=== PATIENT | female | born 1985 | race Caucasian/White ===

== ENCOUNTER 2017-01-31 17:44 | Emergency (ER) | payer MEDICAID ==
[~2017-01-31] VITALS: Ht 162.6 cm; Wt 98.2 kg
[2017-01-31] MEDS ORDERED: SODIUM CHLORIDE FLUSH 10ML SYR IVF ONE (18:30)
[2017-01-31] MEDS ORDERED: SODIUM CHLORIDE 0.9% 1,000ML IVBOLUS ONE (18:30)
[2017-01-31] MEDS ORDERED: ONDANSETRON 2MG/ML, 2ML IVPush ONE (18:30)
[2017-01-31 18:43] LABS: ASPARTATE AMINO TRANSFERASE 26 U/L (15-37); BLOOD UREA NITROGEN 12 mg/dL (7-18)
[2017-01-31] MEDS ORDERED: MAALOX/HYOSCYAMINE/LIDOCAINE 45 ML BOTTLE PO ONE (19:00)
[2017-01-31] MEDS ORDERED: ONDANSETRON 2MG/ML, 2ML ONE (19:01)
[2017-01-31 19:10] LABS: HCG UR OBC PASS
[2017-01-31 19:13] LABS: PATH.CAST-FLAG NOT PRESENT; SPERM-FLAG NOT PRESENT; SRC-FLAG NOT PRESENT; XTAL-FLAG NOT PRESENT; YLC-FLAG NOT PRESENT
[2017-01-31] MEDS ORDERED: MAALOX/HYOSCYAMINE/LIDOCAINE 45 ML BOTTLE ONE (19:27)
[2017-01-31] MEDS ORDERED: MORPHINE SULFATE 4 MG/ML, 1ML ONE (19:41)
[2017-01-31] MEDS ORDERED: METOCLOPRAMIDE 5 MG/ML, 2ML ONE (19:41)
[2017-01-31] MEDS ORDERED: MORPHINE SULFATE 4 MG/ML, 1ML IVPush ONE (20:00)
[2017-01-31] MEDS ORDERED: METOCLOPRAMIDE 5 MG/ML, 2ML IVPush ONE (20:00)
[2017-01-31 20:23] VITALS: BP 103/78
== END 2017-01-31 20:40 | disposition home or self-care (01) ==
LOC: ED 20:34
DX: K25.3 Acute gastric ulcer without hemorrhage or perforation (principal); B96.81 Helicobacter pylori [H. pylori] as the cause of diseases classified elsewhere; N30.00 Acute cystitis without hematuria; R19.7 Diarrhea, unspecified; Z88.0 Allergy status to penicillin; Z90.49 Acquired absence of other specified parts of digestive tract
CPT/HCPCS: 36415; 74020; 80053; 81001; 81025; 83690; 85025; 86677; 87077; 87086; 96361; 96374; 96375; 99285; J2405; J2765; J7030; 87186

== ENCOUNTER 2017-02-03 17:47 | Emergency (ER) | payer MEDICAID ==
[~2017-02-03] VITALS: Ht 152.4 cm; Wt 98.3 kg
[2017-02-03] MEDS ORDERED: FAMOTIDINE 20 MG/2 ML IVP ONE (18:30)
[2017-02-03] MEDS ORDERED: MAALOX/HYOSCYAMINE/LIDOCAINE 45 ML BTL PO ONE (18:30)
[2017-02-03] MEDS ORDERED: SODIUM CHLORIDE 0.9% 1,000ML IVBOLUS ONE (18:30)
[2017-02-03] MEDS ORDERED: ONDANSETRON 2MG/ML, 2ML IVPush ONE (18:30)
[2017-02-03] MEDS ORDERED: SODIUM CHLORIDE FLUSH 10ML SYR IVF ONE (18:30)
[2017-02-03 18:39] LABS: ASPARTATE AMINO TRANSFERASE 17 U/L (15-37); BLOOD UREA NITROGEN 11 mg/dL (7-18)
[2017-02-03] MEDS ORDERED: ONDANSETRON 2MG/ML, 2ML ONE (18:39)
[2017-02-03] MEDS ORDERED: FAMOTIDINE 20 MG/2 ML ONE (18:39)
[2017-02-03] MEDS ORDERED: MAALOX/HYOSCYAMINE/LIDOCAINE 45 ML BTL ONE (18:39)
[2017-02-03] MEDS ORDERED: MORPHINE SULFATE 4 MG/ML, 1ML ONE (19:23)
[2017-02-03 19:28] LABS: PATH.CAST-FLAG NOT PRESENT; SPERM-FLAG NOT PRESENT; SRC-FLAG NOT PRESENT; XTAL-FLAG NOT PRESENT; YLC-FLAG NOT PRESENT
[2017-02-03] MEDS ORDERED: MORPHINE SULFATE 4 MG/ML, 1ML IVPush PRN (19:30)
[2017-02-03 22:16] VITALS: BP 138/77
== END 2017-02-03 22:18 | disposition home or self-care (01) ==
LOC: ED 18:39
DX: K25.3 Acute gastric ulcer without hemorrhage or perforation (principal); B96.81 Helicobacter pylori [H. pylori] as the cause of diseases classified elsewhere; R11.2 Nausea with vomiting, unspecified
CPT/HCPCS: 36415; 80053; 81003; 83690; 84703; 85025; 87077; 87086; 87186; 96361; 96374; 96375; 99285; J2405; J7030; S0028

== ENCOUNTER 2017-06-01 18:35 | Emergency (ER) | payer MEDICAID ==
[~2017-06-01] VITALS: Ht 162.6 cm; Wt 100.0 kg
[2017-06-01] MEDS ORDERED: LEVETIRACETAM 1,000 MG in SODIUM CHLORIDE 0.9% 100 ML IV ONE (19:00)
[2017-06-01] MEDS ORDERED: SODIUM CHLORIDE 0.9% 1,000ML IVBOLUS ONE (19:00)
[2017-06-01 20:04] LABS: HEMATOCRIT 39.1 % (34.6-47.8); HEMOGLOBIN 12.4 g/dL (11.7-16.4); WHITE BLOOD COUNT 14.1 x10^3/uL (3.4-10)
[2017-06-01 20:12] LABS: BLOOD UREA NITROGEN 11 mg/dL (7-18)
[2017-06-01 21:12] VITALS: BP 127/72
== END 2017-06-01 21:14 | disposition home or self-care (01) ==
LOC: ED 21:08
DX: R56.9 Unspecified convulsions (principal); Z88.0 Allergy status to penicillin; Z90.49 Acquired absence of other specified parts of digestive tract
CPT/HCPCS: 36415; 70450; 80048; 82040; 85025; 93005; 96365; 99285; J1953; J7030

== ENCOUNTER 2017-10-25 17:32 | Emergency (ER) | payer MEDICAID ==
[~2017-10-25] VITALS: Ht 162.6 cm; Wt 99.9 kg
[2017-10-25 17:46] VITALS: BP 133/84
== END 2017-10-25 19:03 | disposition home or self-care (01) ==
LOC: ED 18:30
DX: J20.9 Acute bronchitis, unspecified (principal); G40.909 Epilepsy, unspecified, not intractable, without status epilepticus; Z87.891 Personal history of nicotine dependence; Z88.0 Allergy status to penicillin; Z90.49 Acquired absence of other specified parts of digestive tract
CPT/HCPCS: 71046; 93005; 99284

== ENCOUNTER 2018-06-20 11:27 | Emergency (ER) | payer MEDICAID ==
[~2018-06-20] VITALS: Ht 162.6 cm; Wt 97.8 kg
[2018-06-20 11:28] VITALS: BP 159/108
[2018-06-20] MEDS ORDERED: LEVE250T28 PO (11:43)
[2018-06-20] MEDS ORDERED: LEVO75TA5 PO (11:43)
== END 2018-06-20 12:31 | disposition home or self-care (01) ==
LOC: ED 12:15
DX: J06.9 Acute upper respiratory infection, unspecified (principal)
CPT/HCPCS: 71046; 99283

== ENCOUNTER 2018-07-31 14:37 | Emergency (ER) | payer MEDICAID ==
[~2018-07-31] VITALS: Ht 162.6 cm; Wt 100.2 kg
[~2018-07-31 14:37] MED LIST: LEVE250T28 PO; LEVO75TA5 PO
[2018-07-31 14:44] VITALS: BP 132/86
[2018-07-31] MEDS ORDERED: SILVER SULF. CRM 1% , 25GM ONE (14:54)
[2018-07-31] MEDS ORDERED: SILVER SULF. CRM 1% , 25GM TP ONE (15:00)
--- NOTE | 2018-07-31 15:15 | NUR ---
Patient/Caregiver given discharge instructions and they have confirmed that they understand the instructions. Patient ambulatory with steady gait. PT LEFT WITH ALL PERSONAL BELONGINGS.
== END 2018-07-31 15:17 | disposition home or self-care (01) ==
LOC: ED 15:10
DX: T23.201D Burn of second degree of right hand, unspecified site, subsequent encounter (principal); G40.909 Epilepsy, unspecified, not intractable, without status epilepticus; T31.0 Burns involving less than 10% of body surface; X08.8XXD Exposure to other specified smoke, fire and flames, subsequent encounter
CPT/HCPCS: 16020; 99284

== ENCOUNTER 2018-08-01 17:46 | Emergency (ER) | payer MEDICAID ==
[~2018-08-01] VITALS: Ht 162.6 cm; Wt 99.8 kg
[2018-08-01 18:05] VITALS: BP 151/98
== END 2018-08-01 19:12 | disposition home or self-care (01) ==
LOC: ED 18:31
DX: T23.201D Burn of second degree of right hand, unspecified site, subsequent encounter (principal)
CPT/HCPCS: 99283